=== PATIENT | female | born 1965 | race Caucasian/White ===

== ENCOUNTER 2020-08-01 01:22 | Emergency (ER) | payer OTHER ==
[~2020-08-01] VITALS: Ht 160 cm; Wt 58.0 kg
[~2020-08-01 01:22] MED LIST: CIPR500T3 PO; HYDR-3237 PO; POTA20TA14 PO
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
[2020-08-01 04:46] LABS: AMPHETAMINE SCREEN, URINE Positive (Negative); BARBITURATE SCREEN, URINE Negative (Negative); BENZODIAZEPINE SCREEN, URINE Negative (Negative); CANNABINOID SCREEN, URINE Positive (Negative); COCAINE SCREEN, URINE Negative (Negative); METHADONE SCREEN, URINE Negative (Negative); OPIATE SCREEN, URINE Negative (Negative)
[2020-08-01 04:47] LABS: BASOPHILS % (AUTO) 1 % (0-1); EOSINOPHILS % (AUTO) 4 % (1-7); LYMPHOCYTES % (AUTO) 25 % (22-44); MEAN CORPUSCULAR HEMOGLOBIN 30.5 pg (27.0-34.8); MEAN CORPUSCULAR HGB CONC 33.7 g/dL (32.4-35.8); MEAN PLATELET VOLUME 7.1 fL (7.4-10.4); MONOCYTES % (AUTO) 8 % (2-9); NEUTROPHILS % (AUTO) 62 % (42-75); PLATELET COUNT 365 x10^3/uL (130-400); RED BLOOD COUNT 4.52 x10^6/uL (3.82-5.3); RED CELL DISTRIBUTION WIDTH 14.2 % (9.6-15.2)
[2020-08-01 04:51] LABS: SALICYLATE LEVEL 2.6 mg/dL (2.8-20.0)
[2020-08-01 04:55] LABS: MD NO
[2020-08-01 05:34] LABS: ALBUMIN 3.9 g/dL (3.4-5.0); ANION GAP 6 mmol/L (5-15); CALCIUM 9.6 mg/dL (8.5-10.1); CHLORIDE 109 mmol/L (98-107); CREATININE 0.83 mg/dL (0.55-1.02)
--- NOTE | 2020-08-01 06:23 | NUR ---
Telepsych monitor in room
--- NOTE | 2020-08-01 07:00 | NUR ---
Recvd report from Sherri CANSECO.
--- NOTE | 2020-08-01 07:00 | NUR ---
Bedside report given to Tamica RN
--- NOTE | 2020-08-01 07:57 | NUR ---
INSTRUCTED PATIENT TO GET IN GOWN, PT REQUEST TO USE PHONE EXPLAIN AFTER EVALUATION FROM FACILITIES ENGINEERING MANAGER, PT VERBALIZED UNDERSTANDING. WARM BLANKET GIVEN, PT VERBALIZED NO OTHER NEEDS, MEAL ORDERED
--- NOTE | 2020-08-01 08:27 | NUR ---
PATIENT IS RESTING COMFORTABLY IN BED. SUICIDE REASSEMENT COMPLETED. NO NEEDS VERBALIZED AT THIS TIME. CALL LIGHT WITHIN REACH.
--- NOTE | 2020-08-01 08:49 | NUR ---
MEAL PROVIDED FOR PATIENT, PT VERBALIZED NO OTHER NEEDS AT THIS TIME
--- NOTE | 2020-08-01 10:35 | NUR ---
PATIENT DID NOT EAT HER BREAKFAST TRAY, DECAF COFFEE PROVIDED. PATIENT IS SLEEPING AND RESTING COMFORTABLY. NO ADDITIONAL NEEDS VERBALIZED.
--- NOTE | 2020-08-01 10:46 | NUR ---
SPOKE WITH LEENA AT [employer] TO VERIFY THE PT WILL BE EVALUATED BY THE PSYCH PROGRAM SUPPORT ASSISTANT THIS MORNING.
--- NOTE | 2020-08-01 11:29 | NUR ---
PER JULIA MURRELL, PT WILL NOT BE PLACED ON LEGAL HOLD, WILL FIND HER RESOURCES FOR ASSISTANCE. PT USING PHONE.
[2020-08-01 12:02] VITALS: BP 162/62
--- NOTE | 2020-08-01 12:02 | NUR ---
Patient/Caregiver given discharge instructions and they have confirmed that they understand the instructions. Patient ambulatory with steady gait. PT WILL BE GOING TO [facility], WITH FAMILY
== END 2020-08-01 12:04 | disposition home or self-care (01) ==
LOC: ED 05:02
DX: F15.259 Other stimulant dependence with stimulant-induced psychotic disorder, unspecified (principal); F12.20 Cannabis dependence, uncomplicated; F22 Delusional disorders; F17.210 Nicotine dependence, cigarettes, uncomplicated
CPT/HCPCS: 36415; 80048; 80299; 80307; 80320; 80329; 82040; 85025; 99285; 99406; G0480